=== PATIENT | female | born 1935 | race Caucasian/White ===

== ENCOUNTER → 2024-08-17 12:32 | Outpatient (REF) | payer MEDICARE, SELFPAY | LOC: RAD 12:32 | PROVIDERS: ATTENDING PHYSICIAN Surgery Vascular Surgery; FAMILY PHYSICIAN Internal Medicine | DX: I65.23 Occlusion and stenosis of bilateral carotid arteries (principal); I73.9 Peripheral vascular disease, unspecified | CPT/HCPCS: 93880; 93922; 93925 ==